=== PATIENT | male | born 1955 | race Caucasian/White ===

== ENCOUNTER → 2024-06-18 | Outpatient (CLI) | payer MEDICARE, BC ==
[~2024-06-18] MED LIST: ASPIRIN 81M81 MG/TA2 PO; Iohexol 300 - 100 ML VIAL IV ONE; NS 100 ML IV SCH; TYLENOL W/COD1 UDTAB PO; WELCHOL 625MG625 MG PO
== END ==
LOC: COL.RAD 07:30
DX: R42 Dizziness and giddiness (principal)
CPT/HCPCS: Q9967